=== PATIENT | male | born 1980 | race Caucasian/White ===

== ENCOUNTER 2018-08-19 11:46 | Emergency (ER) | payer MEDICAID ==
[~2018-08-19] VITALS: Ht 182.9 cm; Wt 90.0 kg
[2018-08-19 11:48] VITALS: Ht 182.9 cm; Wt 90.0 kg
[2018-08-19] MEDS ORDERED: ASPIRIN 325 MG TAB PO STA (12:16)
[2018-08-19] MEDS ORDERED: NITROGLYCERIN (SL) 0.4 MG TAB SL PRN (12:30)
[2018-08-19] MEDS ORDERED: SOD CHLORIDE 0.9% 1,000 ML IV STA (13:22)
[2018-08-19] MEDS ORDERED: KETOROLAC 30 MG INJ IV STA (13:22)
--- NOTE | 2018-08-19 13:41 | ERD ---
ER Documentation Chief Complaint Chief Complaint PRESSURE LIKE PAIN @ MID CHEST AREA SINCE THIS AM HPI This is a 38-year-old male that presents to the emergency department complaining of chest pain that occurred this morning. Indicates that it has been present for over 9 hours. He states it is a pressure-like sensation in the middle of his chest. Does not radiate to the back. He does state that is exacerbated with movement of his upper extremities. He denies states he has a past medical history of hypertension any illicit drug use. He states he quit tobacco several months ago. The pain does not radiate to the back. He had no associated symptoms of nausea vomiting or diaphoresis. ROS All systems reviewed and are negative except as per history of present illness. Medications Home Meds No Active Prescriptions or Reported Meds Allergies Allergies: Coded Allergies: No Known Allergy (Unverified , 08/19/18) PMhx/Soc Hx Cardiac Disorders: Yes (HIGH CHOLESTEROL) Hx Psychiatric Problems: No Hx Miscellaneous Medical Probl: No Hx Alcohol Use: Yes Hx Substance Use: No Hx Tobacco Use: No Smoking Status: Current some day smoker Physical Exam Vitals Vital Signs Date Temp Pulse Resp B/P (MAP) Pulse Ox O2 O2 Flow FiO2 Time Delivery Rate 08/19/18 98 18 144/92 96 12:45 (109) 08/19/18 97.6 110 18 152/105 98 11:48 (121) Physical Exam Constitutional:Well-developed. Well-nourished. HEENT:Normocephalic. Atraumatic.Pupils were equal round reactive to light. Moist mucous membranes.No tonsillar exudates. Neck: No nuchal rigidity. No lymphadenopathy. No posterior cervical spine tenderness or step-offs. Respiratory: Not using accessory muscles of respiration.Lungs were clear to auscultation bilaterally. No rhonchi. No rales. No wheezing. Cardiovascular: Regular rate regular rhythm.No murmurs. No rubs were appreciated.S1, S2 normal. Distal pulses are palpable 2+ bilaterally. Reproducible tenderness over the mid sternum with no crepitus no ecchymosis no flail chest GI: Abdomen was soft. Nontender. Non Distended. No pulsatile abdominal masses or bruits. No rebound. No guarding. Bowel sounds were present and normal. Muscle skeletal: Full range of motion of both the upper and lower extremities bilaterally.Normal muscle tone.No assymetrical calf tenderness or swelling. Skin: No petechia, no purpura. No lesions on the palms or the soles of the feet. No maculopapular rash. NEURO: Patient was alert, awake, orientated x3.No facial droop. Gait observed and normal with no ataxia.Speech had regular rate and rhythm. No focal neurological deficits. Result Diagram: 08/19/18 1228 08/19/18 1228 Results 24 hrs Laboratory Tests Test 08/19/18 12:28 White Blood Count 7.8 10^3/ul Red Blood Count 5.19 10^6/ul Hemoglobin 15.7 g/dl Hematocrit 45.9 % Mean Corpuscular Volume 88.4 fl Mean Corpuscular Hemoglobin 30.3 pg Mean Corpuscular Hemoglobin Concent 34.2 g/dl Red Cell Distribution Width 12.8 % Platelet Count 208 10^3/UL Mean Platelet Volume 10.6 fl Immature Granulocytes % 0.500 % Neutrophils % 72.2 % Lymphocytes % 19.3 % Monocytes % 6.7 % Eosinophils % 0.9 % Basophils % 0.4 % Nucleated Red Blood Cells % 0.0 /100WBC Immature Granulocytes # 0.040 10^3/ul Neutrophils # 5.6 10^3/ul Lymphocytes # 1.5 10^3/ul Monocytes # 0.5 10^3/ul Eosinophils # 0.1 10^3/ul Basophils # 0.0 10^3/ul Nucleated Red Blood Cells # 0.0 10^3/ul Prothrombin Time 12.1 Sec Prothrombin Time Ratio 0.9 INR International Normalized Ratio 0.89 Activated Partial Thromboplast Time 30.7 Sec Sodium Level 141 mmol/L Potassium Level 4.0 mmol/L Chloride Level 104 mmol/L Carbon Dioxide Level 26 mmol/L Anion Gap 11 Blood Urea Nitrogen 14 mg/dl Creatinine 0.82 mg/dl Est Glomerular Filtrat Rate mL/min > 60 mL/min Glucose Level 92 mg/dl Calcium Level 9.2 mg/dl Total Bilirubin 0.4 mg/dl Direct Bilirubin 0.00 mg/dl Indirect Bilirubin 0.4 mg/dl Aspartate Amino Transf (AST/SGOT) 38 IU/L Alanine Aminotransferase (ALT/SGPT) 41 IU/L Alkaline Phosphatase 115 IU/L Creatine Kinase 371 IU/L Creatine Kinase Index 1.7 Creatinine Kinase MB (Mass) 6.33 ng/ml Troponin I < 0.012 ng/ml B-Type Natriuretic Peptide 25 PG/ML Total Protein 8.1 g/dl Albumin 4.7 g/dl Globulin 3.40 g/dl Albumin/Globulin Ratio 1.38 Current Medications Medications Dose Sig/Miguel Start Time Status Last (Trade) Ordered Route PRN Stop Time Admin Dose Reason Admin Aspirin 325 mg ONCE STAT 08/19/18 DC 08/19/18 (Aspirin) PO 12:16 08/19/18 12:43 12:17 1 tab Q5M UP TO 3 08/19/18 08/19/18 Nitroglycerin DOSES PRN 12:30 12:44 SL .CHEST (Nitroglyceri PAIN n (Sl Tab) 0.4 Mg) Procedures/MDM The patient presented to the emergency department complaining of chest pain. My clinical evaluation and workup was to distinguish minor causes of chest pain from acute life threatening cardiopulmonary causes such as myocardial infarction, pulmonary embolism, aortic dissection, esophageal rupture, cardiac tamponade, The patient was placed on a cardiac cath lab manager, continuous pulse oximetry and IV access established by nursing staff. The patient was given aspirin and nitroglycerin with no improvement of his symptoms. 12 Lead EKG tracing ordered and reviewed by myself showed: Normal sinus rhythm of 95 bpm and no arrhythmia. CO interval normal. QRS duration normal. No ST segment elevation No ST segment depression. No changes consistent with acute ischemia. The patient's troponin was not elevated. The patient had an elevated CK-MB of 6.32. His creatinine kinase was elevated at 371. The patient indicates he does not do a significant amount of heavy lifting as he works out on a regular basis. He also indicated that he went for a long run yesterday and is complaining of cramping in his chest wall. I did feel the patient was a mild rhabdomyolysis. He was given a liter bolus of normal saline and Toradol. He stated the pressure and spasm in his mid chest wall had completely resolved. The patients chest pain was reproduced by palpation and horizontal flexion of the arms. It was my clinical impression that the pain was a result of inflammation of the skin and subcutaneous structures of the chest wall versus myocardial ischemia. I felt the patient had low-risk chest pain and could therefore be safely discharged with close follow-up. Departure Diagnosis: Primary Impression: Rhabdomyolysis Rhabdomyolysis type: non-traumatic Qualified Codes: M62.82 - Rhabdomyol ysis Additional Impression: Costochondritis Condition: Fair MEKA SO MD August 19, 2018 13:40
[2018-08-19] MEDS ORDERED: IBUP800T48 PO (13:44)
[2018-08-19 14:40] VITALS: BP 150/88; PULSE 92; RESP 18
== END 2018-08-19 14:40 | disposition home or self-care (01) ==
LOC: E/R 11:46
DX: M62.82 Rhabdomyolysis (principal); M94.0 Chondrocostal junction syndrome [Tietze]; F17.210 Nicotine dependence, cigarettes, uncomplicated
CPT/HCPCS: 71045; 80053; 82550; 82553; 83880; 84484; 85025; 85610; 85730; 93005; 96361; 96374; J1885; J7030; Z7502; Z7610